=== PATIENT | female | born 1960 | race Caucasian/White ===

== ENCOUNTER 2025-09-17 06:25 | Day surgery (SDC) | payer OTHER ==
[2025-09-17] VITALS (16 sets, daily range): BP systolic 114–145; BP diastolic 69–111
[~2025-09-17 06:25] MED LIST: ASPI81CH PO; FISH1000 PO; FLUO10 PO; GABA800 PO; HYDACE7.5; IBUP800; LISI20 PO; METO50ER PO; MULVITMIND PO; NAPR550 PO; NORT25 PO; OMEP20ER PO; OXYACE5T PO; OXYC10ER PO; Percocet 5-3251 EACH PO; SIMV40 PO; TRAZ50 PO; VITS/SUPPS; Vitamin B Comple1 EA PO
--- NOTE | 2025-09-17 07:30 | NUR ---
History, Chart, Medications and Allergies reviewed before start of procedure.Patient States Post-Procedure ride home has been arranged.PT NECKLACE REMOVED AND PLACED INTO BAG, PLACED INTO PATIENTS SHOE AND PT NOTIFIED. PT ALSO HAD HEADPHONES AND CELL PHONE PLACED INTO BELONGINGS BAG WITH NAME ON IT.
--- NOTE | 2025-09-17 07:35 | NUR ---
09/17/25 0735 Galina Manzanares CONFIRMED AND REVIEWED H&P, MEDCICATIONS, ALLERGIES, MEDICAL HISTORY, RESPIRATORY HISTORY, VITAL SIGNS, 3-LEAD EKG, CONSENTS, AND PHYSICIAN ORDERS. PATIENT CONFIRMS NPO STATUS AND AGREES WITH SCHEDULED PROCEDURE. MONITOR INTACT WITH CONTINUOUS PULSE OXIMETRY, CAPNOGRAPHY, 3-LEAD EKG, INTERMITTENT BP. SUPPLEMENTAL O2 TO BE TITRATED THROUGHOUT PROCEDURE TO MAINTAIN O2 SATURATION ABOVE 90%. PATIENT DETERMINED TO BE ASA APPROPRIATE FOR PROPOFOL SEDATION PRIOR TO START OF PROCEDURE BY DR. VALDEZ. MALLAMPATI CLASS 3 AIRWAY: VISUALIZATION OF ONLY THE BASE OF THE UVULA.
--- NOTE | 2025-09-17 08:10 | NUR ---
Discharge instructions reviewed with patient. Patient verbalizes understanding. Copy given to patient to take home. Patient States Post-Procedure ride home has been arranged. Discharged via wheelchair to private car for ride home.
== END 2025-09-17 23:00 | disposition home or self-care (01) ==
LOC: ORSCMMR 06:25 → ORD 07:30 → ORSCMMR 07:30
PROVIDERS: Internal Medicine Gastroenterology
PROC: 0DBN8ZX Excision of Sigmoid Colon, Via Natural or Artificial Opening Endoscopic, Diagnostic (ICD-10-PCS; principal; 2025-09-17 07:30)
PROC: 0DBH8ZX Excision of Cecum, Via Natural or Artificial Opening Endoscopic, Diagnostic (ICD-10-PCS; principal; 2025-09-17 07:30)
DX: Z12.11 Encounter for screening for malignant neoplasm of colon (principal); K63.5 Polyp of colon; Z86.73 Personal history of transient ischemic attack (TIA), and cerebral infarction without residual deficits; E78.00 Pure hypercholesterolemia, unspecified; I10 Essential (primary) hypertension; E11.9 Type 2 diabetes mellitus without complications; F32.A Depression, unspecified; Z79.84 Long term (current) use of oral hypoglycemic drugs; Z79.899 Other long term (current) drug therapy; F17.210 Nicotine dependence, cigarettes, uncomplicated
CPT/HCPCS: 82947; 88305; J2704; J7120